=== PATIENT | male | born 1950 | race Caucasian/White ===

== ENCOUNTER 2018-08-31 10:31 | Day surgery (SDC) | payer MEDICARE ==
[~2018-08-31] VITALS: Ht 157.5 cm; Wt 52.8 kg
[~2018-08-31 10:31] MED LIST: DOXYCYCLINE 10100 MG PO; PREDNISONE20 MG PO; VENTOLIN0.09 MG IH
[2018-08-31 12:39] VITALS: BP 147/94; PULSE 90; TEMP 97.9
[2018-08-31 13:40] VITALS: BP 120/57; PULSE 102; TEMP 98.2
[2018-08-31 14:00] VITALS: BP 112/61; PULSE 81
[2018-08-31 17:26] VITALS: BP 105/81; PULSE 86
== END 2018-08-31 14:37 | disposition home or self-care (01) ==
LOC: SDCO 10:31
DX: K22.2 Esophageal obstruction (principal); J44.9 Chronic obstructive pulmonary disease, unspecified; K21.0 Gastro-esophageal reflux disease with esophagitis; F17.210 Nicotine dependence, cigarettes, uncomplicated; Z88.0 Allergy status to penicillin; Z79.82 Long term (current) use of aspirin
CPT/HCPCS: J2250; J3010; J7030